=== PATIENT | female | born 1955 | race Caucasian/White ===

== ENCOUNTER 2022-05-27 10:59 | Day surgery (SDC) | payer MEDICARE, OTHER ==
[2022-05-27] MEDS ORDERED: Sodium Chloride 0.9(Preservative Free) 10 ML IJ ONE (11:00)
[2022-05-27] MEDS ORDERED: Depo-Medrol 40 MG/ML IM ONE (11:00)
[2022-05-27] MEDS ORDERED: Xylocaine-Mpf 2% 5 Ml Vial ONE (12:54)
[2022-05-27] MEDS ORDERED: Lactated Ringers 1,000 ML IV ONE (13:31)
--- NOTE | 2022-05-27 13:32 | XRAY ---
Indication: Left L4-S1 transforaminal IRENE. Intraoperative fluoroscopy provided for 34 seconds. Single digital spot image submitted for interpretation demonstrates posterior needle tips projecting over the expected left L4 and L5 nerve roots. Small amount of contrast injected for needle tip placement. Correlate with intraoperative findings/report.
--- NOTE | 2022-05-27 13:41 | XRAY ---
34 seconds fluoroscopy time in surgery for left L4-S1 transforaminal IRENE.
== END 2022-05-27 13:25 | disposition home or self-care (01) ==
LOC: SDC-PAIN 10:59
PROVIDERS: ATTEND Psychiatry & Neurology Pain Medicine
DX: M54.16 Radiculopathy, lumbar region (principal); E11.9 Type 2 diabetes mellitus without complications; Z79.899 Other long term (current) drug therapy
CPT/HCPCS: 64483; 64484; 72100; 77003; 82947; J1030; Q9966

== ENCOUNTER 2022-07-07 11:33 | Day surgery (SDC) | payer MEDICARE, OTHER ==
[2022-07-07] MEDS ORDERED: Depo-Medrol 40 MG/ML IM ONE (11:34)
[2022-07-07] MEDS ORDERED: LIDOCAINE HCL 1% 50 MG/5 ML VL PF IJ ONE (11:34)
[2022-07-07] MEDS ORDERED: BUPIVACAINE 0.5% VIAL IJ ONE (11:34)
--- NOTE | 2022-07-07 16:09 | XRAY ---
Indication: Left SI joint injection. Intraoperative fluoroscopy provided for 11 seconds. 2 digital spot images submitted for interpretation demonstrates posterior needle tip projecting over the left SI joint. Correlate with intraoperative findings/report.
--- NOTE | 2022-07-07 16:35 | XRAY ---
11 seconds of fluoroscopy was used in surgery for a left sacroiliac joint injection.
== END 2022-07-07 13:50 | disposition home or self-care (01) ==
LOC: SDC-PAIN 11:33
PROVIDERS: ATTEND Psychiatry & Neurology Pain Medicine
DX: M46.1 Sacroiliitis, not elsewhere classified (principal); E11.9 Type 2 diabetes mellitus without complications; Z79.899 Other long term (current) drug therapy
CPT/HCPCS: 27096; 72170; 77002; 82947; G0260; J1030; J2001

== ENCOUNTER 2022-08-04 07:51 | Day surgery (SDC) | payer MEDICARE, OTHER ==
[2022-08-04] MEDS ORDERED: LIDOCAINE HCL 1% 50 MG/5 ML VL PF IJ ONE (07:52)
[2022-08-04] MEDS ORDERED: Depo-Medrol 40 MG/ML IM ONE (07:52)
[2022-08-04] MEDS ORDERED: Decadron 4 MG INJ IV ONE (07:52)
[2022-08-04] MEDS ORDERED: BUPIVACAINE 0.5% VIAL IJ ONE (07:52)
[2022-08-04] MEDS ORDERED: DIPRIVAN 200 MG/20 ML IV ONE (09:26)
--- NOTE | 2022-08-04 10:07 | XRAY ---
Indication: Left piriformis and left hip injection. Intraoperative fluoroscopy provided for 39 seconds. 2 digital spot image obtained prone submitted for interpretation demonstrates posterior needle tip projecting over the expected left piriformis muscle. Second needle tip lateral to left femur neck. Small amount of contrast injected for both needle tip placement. Correlate with intraoperative findings/report.
--- NOTE | 2022-08-04 11:36 | XRAY ---
39 seconds of fluoroscopy was used in surgery for a left hip intra-articular injection and a left piriformis injection.
[2022-08-04] MEDS ORDERED: Lactated Ringers 1,000 ML IV ONE (13:53)
== END 2022-08-04 09:55 | disposition home or self-care (01) ==
LOC: SDC-PAIN 07:51
PROVIDERS: ATTEND Psychiatry & Neurology Pain Medicine
DX: M16.12 Unilateral primary osteoarthritis, left hip (principal); M79.18 Myalgia, other site; E11.9 Type 2 diabetes mellitus without complications; Z79.899 Other long term (current) drug therapy
CPT/HCPCS: 20552; 20610; 73502; 77002; 82947; J1030; J1100; J2001; J2704

== ENCOUNTER 2023-02-02 08:48 | Day surgery (SDC) | payer MEDICARE, OTHER ==
[2023-02-02] MEDS ORDERED: BUPIVACAINE 0.5% VIAL IJ ONE (08:49)
[2023-02-02] MEDS ORDERED: LIDOCAINE HCL 1% 50 MG/5 ML VL PF IJ ONE (08:49)
[2023-02-02] MEDS ORDERED: Depo-Medrol 40 MG/ML IM ONE (08:49)
[2023-02-02] MEDS ORDERED: Decadron 4 MG INJ IV ONE (08:49)
[2023-02-02] MEDS ORDERED: Reglan 10 MG/2 ML ONE (09:25)
[2023-02-02] MEDS ORDERED: Pepcid 20 MG VIAL IV ONE (09:25)
[2023-02-02] MEDS ORDERED: DIPRIVAN 200 MG/20 ML IV ONE (10:24)
--- NOTE | 2023-02-02 12:46 | XRAY ---
Indication: Left hip and left piriformis injection. Intraoperative fluoroscopy provided for 22 seconds. 2 digital spot image obtained prone submitted for interpretation demonstrates needle tip lateral to left femur neck. Second needle tip projects over left piriformis. Small amount of contrast injected for both needle tip placement. Correlate with intraoperative findings/report.
--- NOTE | 2023-02-02 13:02 | XRAY ---
22 seconds of fluoroscopy was used in surgery for a left intra-articular hip and left piriformis injection.
[2023-02-02] MEDS ORDERED: Lactated Ringers 1,000 ML IV ONE (13:34)
== END 2023-02-02 10:52 | disposition home or self-care (01) ==
LOC: SDC-PAIN 08:48
PROVIDERS: ATTEND Psychiatry & Neurology Pain Medicine
DX: M16.12 Unilateral primary osteoarthritis, left hip (principal); M79.18 Myalgia, other site; E11.9 Type 2 diabetes mellitus without complications; Z79.899 Other long term (current) drug therapy
CPT/HCPCS: 20552; 20610; 73502; 77002; 82947; J1030; J1100; J2001; J2704; Q9966

== ENCOUNTER 2023-08-24 08:05 | Day surgery (SDC) | payer MEDICARE ==
[2023-08-24] MEDS ORDERED: Sodium Chloride 0.9(Preservative Free) 10 ML IJ ONE (08:06)
[2023-08-24] MEDS ORDERED: Decadron 4 MG INJ IV ONE (08:06)
[2023-08-24] MEDS ORDERED: DIPRIVAN 200 MG/20 ML IV ONE (11:10)
[2023-08-24] MEDS ORDERED: Lactated Ringers 1,000 ML IV ONE (15:01)
--- NOTE | 2023-08-24 15:18 | XRAY ---
Indication: Right L4-S1 transforaminal IRENE. Intraoperative fluoroscopy provided for 20 seconds. 4 digital spot images submitted for interpretation demonstrates posterior needle tips projecting over the expected right L4 and L5 nerve roots. Small amount of contrast injected for needle tip placement. Correlate with intraoperative findings/report.
--- NOTE | 2023-08-24 16:46 | XRAY ---
20 seconds of fluoroscopy was used in surgery for a right L4-S1 transforaminal IRENE.
== END 2023-08-24 11:57 | disposition home or self-care (01) ==
LOC: SDC-PAIN 08:05
PROVIDERS: ATTEND Psychiatry & Neurology Pain Medicine
DX: M54.16 Radiculopathy, lumbar region (principal); E11.9 Type 2 diabetes mellitus without complications
CPT/HCPCS: 64483; 64484; 72100; 77003; 82947; J1100; J2704; Q9966

== ENCOUNTER 2024-05-24 07:00 | Day surgery (SDC) | payer MEDICARE ==
[2024-05-24] MEDS ORDERED: CLINDAMYCIN-D5W 600 MG/50 ML*** 600 MG/50 ML BAG IV ONE (07:01)
[2024-05-24] MEDS ORDERED: Lactated Ringers 1,000 ML IV ONE (08:07)
[2024-05-24] MEDS ORDERED: DIPRIVAN 200 MG/20 ML IV ONE (08:14)
--- NOTE | 2024-05-24 10:58 | XRAY ---
Indication: Spinal cord stimulator trial. Intraoperative fluoroscopy provided for 1 minute 16 seconds. 10 digital spot image submitted for interpretation demonstrates posterior introducer needle tip projecting approximately L1 level. Single epidural lead inserted with tip projecting approximately T6 level. Correlate with intraoperative findings/report.
--- NOTE | 2024-05-24 12:20 | XRAY ---
One minute and 16 seconds of fluoroscopy was used in surgery for a spinal cord stimulator trial.
== END 2024-05-24 09:20 | disposition home or self-care (01) ==
LOC: SDC-PAIN 07:00
PROVIDERS: ATTEND Psychiatry & Neurology Pain Medicine
DX: M96.1 Postlaminectomy syndrome, not elsewhere classified (principal); E11.9 Type 2 diabetes mellitus without complications
CPT/HCPCS: 01942; 63650; 72100; 77002; 82947; C1897; J2704